=== PATIENT | male | born 1960 | race Caucasian/White ===

== ENCOUNTER 2016-12-06 11:03 | Emergency (ER) | payer OTHER ==
[~2016-12-06] VITALS: Ht 162.6 cm; Wt 70.0 kg
[~2016-12-06 11:03] MED LIST: ALLO300 PO; EPIN1INJ17 IM; FLUT50SP EACH NARE; GABA300C5 PO; GETGO ROLLING W1 MI1; GLUC1TES XX; LANTUS2P SQ; LEVEMIR SQ; LOTE20TA PO; LOVA40TA PO; METF1000 PO; METO100T PO; NOVOINJ3 SQ; SERT-132 PO; SUMA50TA2 PO; TEMA30CA PO; [UNRECOGNIZED DRUG - CODE]; [UNRECOGNIZED DRUG - SUPPLY] SQ
[2016-12-06 11:05] VITALS: BP 163/72; PULSE 60; RESP 20; TEMP 97.9; O2SAT 97
--- NOTE | 2016-12-06 11:32 | PD ---
HPI Chief Complaint: Syncope/Near-Syncope Time Seen by Provider: 11:13 Travel History International Travel<30 days: No Contact w/Intl Traveler<30days: No Traveled to known affect area: No History of Present Illness HPI 56yo M with PMH of neurocardiogenic syncope, DM, HTN presents to the ED with c/ o persistent nasal bone pain s/p fall yesterday afternoon. Pt had an episode of syncope at 3pm yesterday and had epistaxis when he woke up. Pt states he had another episode of epistaxis this morning so was worried that he broke his nose. He has had an extensive work up for his repeated episodes of syncope including loop recorder, cardiology clearance, neurology follow up. Pt currently denies any fever, dizziness, chest pain, sob, n/v, abdominal pain, focal weakness or numbness. PFSH Past Medical History Arthritis: Yes Cancer: No Cardiovascular Problems: Yes (HTN) High Cholesterol: Yes Diabetes: Yes Patient Takes Glucophage: Yes Diminished Hearing: No Gastrointestinal Disorders: No Gout: Yes Genitourinary: No Hypertension: Yes Immune Disorder: No Implanted Vascular Access Dvce: No Neurologic: No Psychiatric: No Reproductive: No Past Surgical History Cardiac Surgery: Yes (loop recorder) Other Surgery: No Social History Alcohol Use: Yes (occ) Tobacco Use: No Substance Use: No Allergies-Medications (Allergen,Severity, Reaction): Coded Allergies: Chlorine (Verified Allergy, Severe, 12/06/16) Opium (Verified Allergy, Intermediate, Anaphylaxis, 12/06/16) states he gets agitation and hyperventilates Opiate Agonists (Narcotics) (Verified Allergy, Unknown, 12/06/16) Shellfish (Verified Allergy, Unknown, 12/06/16) Reported Meds & Prescriptions Reported Meds & Active Scripts Active Acetaminophen 500 Mg Tab 500 Mg PO Q6H PRN Fluticasone Nasal [place] 50 Mcg/Act Naspr 1-2 [place] EACH NARE BID 50 mcg/spray Bd Insulin Syringe Safety 31G X 1564" 0.3 ml (Insulin Syringe/Needle U-100) 1 Mis Mis Syringe TID Sertraline (Sertraline HCl) 50 Mg Tab 50 Mg PO DAILY Temazepam 30 Mg Cap 30 Mg PO HS PRN Novolog Flexpen Inj (Insulin Aspart) 300 Unit/3 Ml Pen 1 Units SQ DIRECTED BD Pen Mini/Insulin Injection Device 1 Mis Mis 1 Units SQ QID Levemir Inj (Insulin Detemir) 1,000 unit/ 10 ML Vial 12 Units SQ DAILY Do not mix with any other Insulin. True Metrix Self Monitori (Glucose Blood) 1 Emily Emily 1 Strip XX 5 TIMES A DAY Metformin (Metformin HCl) 1,000 Mg Tab 1,000 Mg PO BID With a meal Metoprolol Tartrate 100 Mg Tab 50 Mg PO BID Lotensin (Benazepril HCl) 20 Mg Tab 20 Mg PO DAILY Sumatriptan (Sumatriptan Succinate) 50 Mg Tab 50 Mg PO ONCE PRN If a satisfactory response has not been obtained at 2 hours, a second dose may be administered Reported Jonh Moran/Milka (Device) 1 Mis Mis 1 Ea .ROUTE DIRECTED Lovastatin 40 Mg Tab 40 Mg PO HS Lantus Inj (Insulin Glargine) 100 Unit/Ml Inj 25 Units SQ HS Gabapentin 300 Mg Cap 300 Mg PO TID Epinephrine Inj (Epinephrine) 0.3 Mg/0.3 Ml Pfpen 0.3 Mg IM ONCE PRN Zyloprim (Allopurinol) 300 Mg Tab 300 Mg PO DAILY Review of Systems Except as stated in HPI: all other systems reviewed are Neg Physical Exam Narrative GENERAL: 56yo M not in distress. SKIN: Warm and dry. HEAD: Normocephalic. Atraumatic. EYES: Pupils equal and round at 4mm bilaterally. EOMI. No scleral icterus. No injection or drainage. ENT: No active bleeding. No septal hematoma. +Small abrasion bridge of nose with ttp bilateral nasal bone. No drainage from bilateral ears. NECK: No midline ttp cervical spine. CARDIOVASCULAR: Regular rate and rhythm. No murmur appreciated. RESPIRATORY: No accessory muscle use. Clear to auscultation. Breath sounds equal bilaterally. GASTROINTESTINAL: Abdomen soft, non-tender, nondistended. No rebound tenderness bilaterally. MUSCULOSKELETAL: No obvious deformities. No clubbing. No cyanosis. No edema. NEUROLOGICAL: Awake and alert. No obvious cranial nerve deficits. Motor grossly within normal limits. Normal speech. PSYCHIATRIC: Appropriate mood and affect; insight and judgment normal. Data Data Last Documented VS Vital Signs Date Time Temp Pulse Resp B/P Pulse Ox O2 Delivery O2 Flow Rate FiO2 12/06/16 13:25 53 20 139/65 97 Room Air 12/06/16 11:05 97.9 Orders Electrocardiogram (12/06/16 ) Complete Blood Count With Diff (12/06/16 11:24) Basic Metabolic Panel (Bmp) (12/06/16 11:24) Ct Brain W/O Iv Contrast(Rout) (12/06/16 ) Ct Facial Bones W/O Iv Cont (12/06/16 ) Labs Laboratory Tests Test 12/06/16 11:30 White Blood Count 6.6 TH/MM3 Red Blood Count 3.85 MIL/MM3 Hemoglobin 12.1 GM/DL Hematocrit 34.8 % Mean Corpuscular Volume 90.5 FL Mean Corpuscular Hemoglobin 31.5 PG Mean Corpuscular Hemoglobin 34.8 % Concent Red Cell Distribution Width 13.4 % Platelet Count 177 TH/MM3 Mean Platelet Volume 9.7 FL Neutrophils (%) (Auto) 58.2 % Lymphocytes (%) (Auto) 30.2 % Monocytes (%) (Auto) 9.5 % Eosinophils (%) (Auto) 1.7 % Basophils (%) (Auto) 0.4 % Neutrophils # (Auto) 3.9 TH/MM3 Lymphocytes # (Auto) 2.0 TH/MM3 Monocytes # (Auto) 0.6 TH/MM3 Eosinophils # (Auto) 0.1 TH/MM3 Basophils # (Auto) 0.0 TH/MM3 CBC Comment DIFF FINAL Differential Comment Sodium Level 141 MEQ/L Potassium Level 4.3 MEQ/L Chloride Level 107 MEQ/L Carbon Dioxide Level 28.6 MEQ/L Anion Gap 5 MEQ/L Blood Urea Nitrogen 20 MG/DL Creatinine 1.21 MG/DL Estimat Glomerular Filtration 62 ML/MIN Rate Random Glucose 137 MG/DL Calcium Level 8.2 MG/DL MDM Medical Decision Making Medical Screen Exam Complete: Yes Emergency Medical Condition: Yes Interpretation(s) EKG: NSR 62bpm. LAD. TWI III. Mild STD aVF. Laboratory Tests Test 12/06/16 11:30 White Blood Count 6.6 TH/MM3 (4.0-11.0) Red Blood Count 3.85 MIL/MM3 (4.50-5.90) Hemoglobin 12.1 GM/DL (13.0-17.0) Hematocrit 34.8 % (39.0-51.0) Mean Corpuscular Volume 90.5 FL (80.0-100.0) Mean Corpuscular Hemoglobin 31.5 PG (27.0-34.0) Mean Corpuscular Hemoglobin 34.8 % Concent (32.0-36.0) Red Cell Distribution Width 13.4 % (11.6-17.2) Platelet Count 177 TH/MM3 (150-450) Mean Platelet Volume 9.7 FL (7.0-11.0) Neutrophils (%) (Auto) 58.2 % (16.0-70.0) Lymphocytes (%) (Auto) 30.2 % (9.0-44.0) Monocytes (%) (Auto) 9.5 % (0.0-8.0) Eosinophils (%) (Auto) 1.7 % (0.0-4.0) Basophils (%) (Auto) 0.4 % (0.0-2.0) Neutrophils # (Auto) 3.9 TH/MM3 (1.8-7.7) Lymphocytes # (Auto) 2.0 TH/MM3 (1.0-4.8) Monocytes # (Auto) 0.6 TH/MM3 (0-0.9) Eosinophils # (Auto) 0.1 TH/MM3 (0-0.4) Basophils # (Auto) 0.0 TH/MM3 (0-0.2) CBC Comment DIFF FINAL Differential Comment Sodium Level 141 MEQ/L (136-145) Potassium Level 4.3 MEQ/L (3.5-5.1) Chloride Level 107 MEQ/L (98-107) Carbon Dioxide Level 28.6 MEQ/L (21.0-32.0) Anion Gap 5 MEQ/L (5-15) Blood Urea Nitrogen 20 MG/DL (7-18) Creatinine 1.21 MG/DL (0.60-1.30) Estimat Glomerular Filtration 62 ML/MIN (>89) Rate Random Glucose 137 MG/DL (74-106) Calcium Level 8.2 MG/DL (8.5-10.1) Last Impressions Maxillofacial CT 12/06/16 0000 Signed Impressions: Service Date/Time: Tuesday, December 06, 2016 13:03 - CONCLUSION: No facial fracture. Ezequiel Eaton MD Head CT 12/06/16 0000 Signed Impressions: Service Date/Time: Tuesday, December 06, 2016 13:03 - CONCLUSION: No acute intracranial disease. Ezequiel Eaton MD Differential Diagnosis Neurocardiogenic syncope vs. concussion vs. ICH vs. nasal bone fracture vs. arrhythmia vs. electrolyte abnormality Narrative Course 56yo M with history of neurocardiogenic syncope here with nasal pain after fall yesterday. Pt had epistaxis that had resolved on its own. Labs reviewed, no leukocytosis. H/H low but at baseline. BUN mildly elevated. Pt tolerating PO. CT brain negative. CT maxillofacial negative for fracture. Pt has no complaints. Return precautions given. Up to date on tetanus. Diagnosis Primary Impression: Fall Qualified Code: W19.XXXA - Fall, initial encounter Patient Instructions: General Instructions Departure Forms: Tests/Procedures Additional Instructions: Please follow up with PMD in 3-7 days. Return to the ED if symptoms worsen. Med/Other Pt SpecificInfo: Prescription(s) given Scripts Acetaminophen 500 Mg Nin419 Mg PO Q6H PRN (PAIN SCALE 1 TO 4) #20 TAB Ref 0 Prov:Radha Mejia DO 12/06/16 Disposition: 01 DISCHARGE HOME Condition: Stable Radha Mejia DO Dec 06, 2016 11:32
[2016-12-06 11:45] LABS: AUTOMATED NEUTROPHIL # 3.9 TH/MM3 (1.8-7.7); BASOPHIL % 0.4 % (0.0-2.0); EOSINOPHIL # 0.1 TH/MM3 (0-0.4); EOSINOPHIL % 1.7 % (0.0-4.0); HEMATOCRIT 34.8 % (39.0-51.0); HEMO FLAGS DIFF FINAL; LYMPH % 30.2 % (9.0-44.0); MEAN CELL VOLUME 90.5 FL (80.0-100.0); MEAN CORPUSCULAR HEMOGLOBIN 31.5 PG (27.0-34.0); MEAN CORPUSCULAR HGB CONC 34.8 % (32.0-36.0); MONO % 9.5 % (0.0-8.0); NEUT % 58.2 % (16.0-70.0); PLATELET COUNT 177 TH/MM3 (150-450); RED BLOOD COUNT 3.85 MIL/MM3 (4.50-5.90); RED CELL DISTRIBUTION WIDTH 13.4 % (11.6-17.2); WHITE BLOOD COUNT 6.6 TH/MM3 (4.0-11.0)
[2016-12-06 12:02] VITALS: BP 139/65; PULSE 63; RESP 18; O2SAT 96
[2016-12-06 12:02] LABS: BICARBONATE 28.6 MEQ/L (21.0-32.0); POTASSIUM 4.3 MEQ/L (3.5-5.1)
--- NOTE | 2016-12-06 13:21 | RADRPT ---
EXAM DATE/TIME: 12/06/2016 13:03 [facility] COMPARISON: CT BRAIN W/O CONTRAST, May 03, 2016, 10:13. INDICATIONS : Fall and hit head and face yesterday; possible syncopal episode. RADIATION DOSE: 42.27 CTDIvol (mGy) MEDICAL HISTORY : Hypertension. Diabetes mellitus type 2. SURGICAL HISTORY : None. ENCOUNTER: Initial ACUITY: 1 day PAIN SCALE: 5/10 LOCATION: cranial TECHNIQUE: Multiple contiguous axial images were obtained of the head. Using automated exposure control and adj ustment of the mA and/or kV according to patient size, radiation dose was kept as low as reasonably a chievable to obtain optimal diagnostic quality images. FINDINGS: CEREBRUM: Cortical atrophy. The ventricles are normal for age. No evidence of midline shift, mass lesion, hemo rrhage or acute infarction. No extra-axial fluid collections are seen. POSTERIOR FOSSA: The cerebellum and brainstem are intact. The 4th ventricle is midline. The cerebellopontine angle i s unremarkable. EXTRACRANIAL: The visualized portion of the orbits is intact. SKULL: The calvaria is intact. No evidence of skull fracture. CONCLUSION: No acute intracranial disease. Ezequiel Eaton MD on December 06, 2016 at 13:19 Board Certified Radiologist. This report was verified electronically.
--- NOTE | 2016-12-06 13:22 | RADRPT ---
EXAM DATE/TIME: 12/06/2016 13:03 [facility] COMPARISON: No previous studies available for comparison. INDICATIONS : Fall and hit head and face yesterday; possible syncopal episode. RADIATION DOSE: 54.47 CTDIvol (mGy) MEDICAL HISTORY : Hypertension. Diabetes mellitus type 2. SURGICAL HISTORY : None. ENCOUNTER: Initial ACUITY: 1 day PAIN SCORE: 6/10 LOCATION: facial TECHNIQUE: Volumetric scanning of the facial bones was performed. Using automated exposure control and adjustme nt of the mA and/or kV according to patient size, radiation dose was kept as low as reasonably achiev able to obtain optimal diagnostic quality images. FINDINGS: ORBITS: The orbital and infraorbital osseous structures are intact. The retroconal structures have a normal configuration. No radiopaque foreign bodies are seen. NASAL BONE: The nasal bone and maxillary spine are intact ZYGOMATIC ARCHES: Symmetric without evidence of fracture. SINUSES: The maxillary, ethmoid and frontal sinuses are intact. No air-fluid levels seen. NASAL CAVITY: The nasal septum is intact and midline. The lacrimal ducts are intact. SOFT TISSUES: No radiopaque foreign bodies seen. No soft-tissue swelling is seen. INTRACRANIAL: No intracranial air seen. CRIBIFORM PLATE: Grossly intact. CONCLUSION: No facial fracture. Ezequiel Eaton MD on December 06, 2016 at 13:20 Board Certified Radiologist. This report was verified electronically.
[2016-12-06 13:25] VITALS: BP 139/65; PULSE 53; RESP 20; O2SAT 97
[2016-12-06] MEDS ORDERED: ACET500T3 PO (13:44)
[2016-12-06 15:40] VITALS: BP 186/88; O2SAT 96
--- NOTE | 2016-12-07 12:54 | EKG ---
Date Performed: 12/06/2016 Time Performed: 11:27:45 PTAGE: 56 years EKG: Sinus rhythm NORMAL ECG PREVIOUS TRACING : 11/07/2015 08.33 DOCTOR: Chris Valentin Interpretating Date/Time 12/07/2016 12:49:55
[2016-12-16] MEDS ORDERED: SERT-132 PO (09:48)
[2016-12-19] MEDS ORDERED: LOVA40TA PO (08:16)
[2016-12-23] MEDS ORDERED: LANTUS2P SQ (16:57)
[2017-01-20] MEDS ORDERED: GLUC1TES XX (08:41)
[2017-01-21] MEDS ORDERED: TEMA30CA PO (16:46)
[2017-01-25] MEDS ORDERED: AMLO5TAB2 PO (05:24)
[2017-01-25] MEDS ORDERED: BLOOKIT (05:25)
[2017-01-25] MEDS ORDERED: METO25TA3 PO (05:27)
[2017-02-10] MEDS ORDERED: ALLO300 PO (08:05)
[2017-02-10] MEDS ORDERED: LOTE20TA PO (08:06)
[2017-02-23] MEDS ORDERED: AMLO5TAB2 PO (07:23)
[2017-02-25] MEDS ORDERED: TEMA30CA PO (11:55)
[2017-02-25] MEDS ORDERED: BUSP5TAB PO (23:57)
[2017-03-20] MEDS ORDERED: AMLO5TAB2 PO (18:53)
[2017-03-20] MEDS ORDERED: FLUT50SP EACH NARE (18:54)
[2017-03-20] MEDS ORDERED: BUSP5TAB PO (18:54)
[2017-04-01] MEDS ORDERED: GABA300C5 PO (14:53)
[2017-04-15] MEDS ORDERED: BUSP10TA PO (13:00)
[2017-04-22] MEDS ORDERED: TEMA30CA PO (07:32)
== END 2016-12-06 15:47 | disposition home or self-care (01) ==
LOC: NEPA 11:03
DX: J34.89 Other specified disorders of nose and nasal sinuses (principal); R55 Syncope and collapse; I10 Essential (primary) hypertension; E11.9 Type 2 diabetes mellitus without complications; E78.00 Pure hypercholesterolemia, unspecified; W19.XXXA Unspecified fall, initial encounter; Z79.84 Long term (current) use of oral hypoglycemic drugs
CPT/HCPCS: 70450; 70486; 80048; 85025; 93005

== ENCOUNTER 2017-03-04 16:05 | Emergency (ER) | payer OTHER ==
[~2017-03-04] VITALS: Ht 162.6 cm; Wt 70.0 kg
[~2017-03-04 16:05] MED LIST changes: +ACET500T3 PO; +AMLO5TAB2 PO; +BLOOKIT; +BUSP5TAB PO; -METO100T PO; +METO25TA3 PO; -SERT-132 PO
[2017-03-04 16:06] VITALS: BP 92/51; PULSE 62; RESP 18; TEMP 98.8; O2SAT 97
--- NOTE | 2017-03-04 16:10 | PD ---
Physical Exam Date Seen by Provider: March 04, 2017 Time Seen by Provider: 16:08 Narrative 56 year old male presents to the emergency department for evaluation of syncope. He reports history of diabetic neurological syncope. He reports left facial pain and left arm pain. Vital signs reviewed. Patient awaiting bed placement. Data Data Last Documented VS Vital Signs Date Time Temp Pulse Resp B/P Pulse Ox O2 Delivery O2 Flow Rate FiO2 03/04/17 16:06 98.8 62 18 92/51 97 MDM Supervised Visit with LARON: Amy Echeverria March 04, 2017 16:10
[2017-03-04] MEDS ORDERED: TRAM50TA PO (16:24)
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
[2017-03-20] MEDS ORDERED: AMLO5TAB2 PO (18:53)
[2017-03-20] MEDS ORDERED: BUSP5TAB PO (18:54)
[2017-03-20] MEDS ORDERED: FLUT50SP EACH NARE (18:54)
[2017-04-01] MEDS ORDERED: GABA300C5 PO (14:53)
[2017-04-15] MEDS ORDERED: BUSP10TA PO (13:00)
[2017-04-22] MEDS ORDERED: TEMA30CA PO (07:32)
== END 2017-03-04 17:01 | disposition home or self-care (01) ==
LOC: NEPD 16:05
DX: R55 Syncope and collapse (principal); S50.12XA Contusion of left forearm, initial encounter; V19.9XXA Pedal cyclist (driver) (passenger) injured in unspecified traffic accident, initial encounter; Y93.55 Activity, bike riding
CPT/HCPCS: 99283

== ENCOUNTER 2017-05-26 15:18 | Emergency (ER) | payer OTHER ==
[~2017-05-26 15:18] MED LIST changes: +BUSP10TA PO; -BUSP5TAB PO; +TRAM50TA PO
[2017-05-26 15:29] VITALS: BP 136/73; PULSE 81; RESP 16; TEMP 98.6; O2SAT 98
[2017-05-26 16:58] VITALS: RESP 18; O2SAT 99
[2017-05-26] MEDS ORDERED: LIDOCAINE 2%/EPINEPHrine 1:100,000 30ML MDV INFIL ONE (17:00)
[2017-05-26] MEDS ORDERED: SODIUM CHLORIDE 0.9% FLUSH 10 ML FLUSH IVF PRN (17:00)
[2017-05-26] MEDS ORDERED: LIDOCAINE 2%/EPINEPHrine 1:100,000 50ML MDV ONE (17:01)
[2017-05-26] MEDS ORDERED: KETOROLAC TROMETHAMINE 30 MG/ML (IVP) VIAL IV PUSH ONE (17:15)
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
[2017-05-26 17:28] LABS: AUTOMATED NEUTROPHIL # 10.4 TH/MM3 (1.8-7.7); BASOPHIL # 0.1 TH/MM3 (0-0.2); BASOPHIL % 0.9 % (0.0-2.0); EOSINOPHIL % 0.2 % (0.0-4.0); HEMO FLAGS DIFF FINAL; LYMPH % 19.5 % (9.0-44.0); LYMPHOCYTE # 2.8 TH/MM3 (1.0-4.8); MEAN CELL VOLUME 93.2 FL (80.0-100.0); MEAN CORPUSCULAR HEMOGLOBIN 32.5 PG (27.0-34.0); MEAN CORPUSCULAR HGB CONC 34.8 % (32.0-36.0); MONO % 6.9 % (0.0-8.0); NEUT % 72.5 % (16.0-70.0); PLATELET COUNT 180 TH/MM3 (150-450); RED BLOOD COUNT 4.18 MIL/MM3 (4.50-5.90); RED CELL DISTRIBUTION WIDTH 13.4 % (11.6-17.2); WHITE BLOOD COUNT 14.3 TH/MM3 (4.0-11.0)
[2017-05-26 17:34] LABS: APTT (PATIENT) 24.6 SEC (24.3-30.1); INTERNATIONAL NORMALIZED RATIO 0.9 RATIO; PROTHROMBIN TIME - PATIENT 9.8 SEC (9.8-11.6)
--- NOTE | 2017-05-26 17:39 | RADRPT ---
EXAM DATE/TIME: 05/26/2017 17:14 [facility] COMPARISON: No previous studies available for comparison. INDICATIONS : Right hip pain post fall one week ago. MEDICAL HISTORY : None. SURGICAL HISTORY : None. ENCOUNTER: Initial ACUITY: 1 week PAIN SCORE: 5/10 LOCATION: Right hip. FINDINGS: Mild osteoarthritis of the hips. No acute fracture or dislocation. No bony destructive changes. CONCLUSION: 1. Mild osteoarthritis of the hips. No acute bony abnormalities. Maxim Spaulding MD on May 26, 2017 at 17:35 Board Certified Radiologist. This report was verified electronically.
[2017-05-26 17:41] LABS: ANION GAP 7 MEQ/L (5-15); AST (GOT) 28 U/L (15-37); BLOOD UREA NITROGEN 25 MG/DL (7-18); CHLORIDE 100 MEQ/L (98-107); GLOMERULAR FILTRATION RATE 64 ML/MIN (>89); MAGNESIUM 1.9 MG/DL (1.5-2.5); POTASSIUM 4.5 MEQ/L (3.5-5.1); SODIUM (NA) 136 MEQ/L (136-145)
[2017-05-26 17:47] LABS: ALKALINE PHOSPHATASE 96 U/L (45-117); ALT (GPT) 34 U/L (12-78); CREATINE KINASE 104 U/L (39-308); TOTAL BILIRUBIN ADULT 0.5 MG/DL (0.2-1.0)
[2017-05-26 18:01] LABS: CKMB 3.9 NG/ML (0.5-3.6)
[2017-05-26] MEDS ORDERED: MELO-1 PO (18:14)
[2017-05-26] MEDS ORDERED: CYCL1TAB29 PO (18:14)
--- NOTE | 2017-05-27 09:29 | EKG ---
Date Performed: 05/26/2017 Time Performed: 18:29:50 PTAGE: 56 years EKG: Sinus rhythm NORMAL ECG PREVIOUS TRACING : 12/06/2016 11.27 DOCTOR: James Streeter Interpretating Date/Time 05/27/2017 09:28:20
[2017-06-10] MEDS ORDERED: EPIP0.3I IM (16:58)
[2017-06-10] MEDS ORDERED: TEMA30CA PO (16:58)
== END 2017-05-26 19:07 | disposition home or self-care (01) ==
LOC: NEPE 15:18
DX: S51.811A Laceration without foreign body of right forearm, initial encounter (principal); R55 Syncope and collapse; M25.551 Pain in right hip; I10 Essential (primary) hypertension; E11.9 Type 2 diabetes mellitus without complications; E78.00 Pure hypercholesterolemia, unspecified; V19.3XXA Pedal cyclist (driver) (passenger) injured in unspecified nontraffic accident, initial encounter; Y93.55 Activity, bike riding; Z79.4 Long term (current) use of insulin; Z87.39 Personal history of other diseases of the musculoskeletal system and connective tissue; Z86.79 Personal history of other diseases of the circulatory system; Z86.69 Personal history of other diseases of the nervous system and sense organs
CPT/HCPCS: 12002; 73502; 80053; 82550; 82552; 83735; 84484; 85025; 85610; 85730; 93005; 96374; 99285; J1885

== ENCOUNTER 2017-06-13 03:00 | Emergency (ER) | payer OTHER ==
[~2017-06-13] VITALS: Ht 162.6 cm; Wt 78.6 kg
[~2017-06-13 03:00] MED LIST changes: +CYCL1TAB29 PO; -EPIN1INJ17 IM; +EPIP0.3I IM; -LANTUS2P SQ; -LEVEMIR SQ; +MELO-1 PO; -NOVOINJ3 SQ
[2017-06-13 03:03] VITALS: BP 147/84; PULSE 109; RESP 20; TEMP 98.4; O2SAT 100
[2017-06-13] MEDS ORDERED: SODIUM CHLOR 0.9% 1000 ML INJ 1,000 ML IV ONE (03:11)
[2017-06-13] MEDS ORDERED: diphenhydrAMINE HCL 50 MG/ML VIAL IVP ONE (03:15)
[2017-06-13] MEDS ORDERED: PROCHLORPERAZINE INJ 10 MG/2 ML VIAL IVP ONE (03:15)
[2017-06-13] MEDS ORDERED: SODIUM CHLORIDE 0.9% FLUSH 10 ML FLUSH IVF PRN (03:15)
--- NOTE | 2017-06-13 03:24 | PD ---
HPI . Migraine Chief Complaint: Syncope/Near-Syncope Time Seen by Provider: 03:11 Travel History International Travel<30 days: No Contact w/Intl Traveler<30days: No Traveled to known affect area: No History of Present Illness HPI This patient presents to us via [facility] with the chief complaint of migraine headache which started this morning. He has subsequently developed vertigo with nausea and vomiting. He states that he has a history of migraine headaches and normally takes a triptan at the onset of a headache. However, he was at work today and did not have access to his medication. Therefore, he has not had anything for his migraine prior to presentation. His vertigo is exacerbated by sitting up and improved by lying down. He reports that his symptoms are severe. PFSH Past Medical History Arthritis: Yes Cancer: No Cardiovascular Problems: Yes (HTN) High Cholesterol: Yes Diabetes: Yes Patient Takes Glucophage: Yes Diminished Hearing: No Gastrointestinal Disorders: No Gout: Yes Genitourinary: No Hypertension: Yes Immune Disorder: No Implanted Vascular Access Dvce: No Neurologic: No Psychiatric: No Reproductive: No Past Surgical History Surgical History: No Previous Surgery Cardiac Surgery: Yes (loop recorder) Other Surgery: No Social History Alcohol Use: Yes (occ) Tobacco Use: No Substance Use: No Allergies-Medications (Allergen,Severity, Reaction): Coded Allergies: sodium hypochlorite solution (Unverified Allergy, Severe, 06/10/17) opium (anthroposophic) (Unverified Allergy, Intermediate, Anaphylaxis, ) states he gets agitation and hyperventilates Opioids - Morphine Analogues (Unverified Allergy, Unknown, 06/10/17) Opioids-Meperidine and Related (Unverified Allergy, Unknown, 06/10/17) Opioids-Methadone and Related (Unverified Allergy, Unknown, 06/10/17) shellfish derived (Unverified Allergy, Unknown, 06/10/17) Reported Meds & Prescriptions Reported Meds & Active Scripts Active Epipen 2-Eliseo Inj (Epinephrine) 0.3 Mg/0.3 Ml Pfpen 0.3 Mg IM ONCE PRN Temazepam 30 Mg Cap 30 Mg PO HS PRN Flexeril (Cyclobenzaprine HCl) 10 Mg Tab 10 Mg PO TID PRN 10 Days Meloxicam 15 Mg Tab 15 Mg PO DAILY 10 Days Lotensin (Benazepril HCl) 20 Mg Tab 20 Mg PO DAILY True Metrix Self Monitori (Glucose Blood) 1 Emily Emily 1 Strip XX 5 TIMES A DAY Zyloprim (Allopurinol) 300 Mg Tab 300 Mg PO DAILY Metoprolol Tartrate 25 Mg Tab 25 Mg PO BID Buspirone (Buspirone HCl) 10 Mg Tab 10 Mg PO TID Gabapentin 300 Mg Cap 300 Mg PO TID Fluticasone Nasal [place] 50 Mcg/Act Naspr 1-2 [place] EACH NARE BID 50 mcg/spray Amlodipine (Amlodipine Besylate) 5 Mg Tab 5 Mg PO DAILY Lovastatin 40 Mg Tab 40 Mg PO HS Sumatriptan (Sumatriptan Succinate) 50 Mg Tab 50 Mg PO ONCE PRN If a satisfactory response has not been obtained at 2 hours, a second dose may be administered Reported Tramadol (Tramadol HCl) 50 Mg Tab 50 Mg PO TID PRN Walker Rolling/GetGo (Device) 1 Mis Mis 1 Ea .ROUTE DIRECTED Review of Systems Except as stated in HPI: all other systems reviewed are Neg General / Constitutional: No: Fever, Chills Eyes: Positive: Photophobia HENT: Positive: Headaches, Vertigo Gastrointestinal: Positive: Nausea, Vomiting Physical Exam Narrative GENERAL: Patient is awake and alert. He appears uncomfortable. SKIN: Warm and dry. HEAD: Atraumatic. Normocephalic. EYES: Pupils equal and round. Extraocular movements are intact. ENT: No nasal bleeding or discharge. Mucous membranes pink and moist. NECK: Trachea midline. Neck is supple. CARDIOVASCULAR: Regular rate and rhythm. RESPIRATORY: No accessory muscle use. MUSCULOSKELETAL: No obvious deformities. No edema. NEUROLOGICAL: Awake and alert. No obvious cranial nerve deficits. Motor grossly within normal limits. Normal speech. PSYCHIATRIC: Appropriate mood and affect; insight and judgment normal. Data Data Last Documented VS Vital Signs Date Time Temp Pulse Resp B/P Pulse Ox O2 Delivery O2 Flow Rate FiO2 06/13/17 03:03 98.4 109 20 147/[address] Brain W/O Iv Contrast(Rout) (06/13/17 03:11) Iv Access Insert/Monitor (06/13/17 03:11) Sodium Chloride 0.9% Flush (Ns Flush) (06/13/17 03:15) Prochlorperazine Inj (Compazine Inj) (06/13/17 03:15) Diphenhydramine Inj (Benadryl Inj) (06/13/17 03:15) Sodium Chlor 0.9% 1000 Ml Inj (Ns 1000 M (06/13/17 03:11) MDM Medical Decision Making Medical Screen Exam Complete: Yes Emergency Medical Condition: Yes Differential Diagnosis Differential diagnosis of headache includes but is not limited to migraine, muscle contraction headache, brain tumor, brain bleed Narrative Course This patient presents complaining with a migraine headache. It is associated with vertigo and vomiting. He is being treated with IV fluids and IV Compazine/ Benadryl. CT of the head is pending. The patient is now resting comfortably. No further emesis since medication. Last Impressions Head CT 06/13/17310 Signed Impressions: Service Date/Time: Thursday, June 13, 2017 03:39 - CONCLUSION: Normal examination for a patient of this age. No significant change has occurred. Maxim Spaulding MD This patient is stable for discharge to home. Diagnosis Primary Impression: Migraine Qualified Code: G43.909 - Migraine without status migrainosus, not intractable , unspecified migraine type Patient Instructions: General Instructions, Migraine Headache (DC), Vertigo (DC ) Disposition: DISCHARGE HOME Condition: Stable Iris Fernández MD Jun 13, 2017 03:24
--- NOTE | 2017-06-13 03:46 | RADRPT ---
EXAM DATE/TIME: 06/13/2017 03:39 [facility] COMPARISON: CT BRAIN W/O CONTRAST, December 06, 2016, 13:03. INDICATIONS : Syncopal episode, cephalgia with nausea and vomiting. RADIATION DOSE: 40.49 CTDIvol (mGy) MEDICAL HISTORY : Hypertension. Diabetes mellitus type 2. SURGICAL HISTORY : None. ENCOUNTER: Initial ACUITY: 1 day PAIN SCALE: 5/10 LOCATION: cranial TECHNIQUE: Multiple contiguous axial images were obtained of the head. Using automated exposure control and adj ustment of the mA and/or kV according to patient size, radiation dose was kept as low as reasonably a chievable to obtain optimal diagnostic quality images. DICOM format image data is available electro nically for review and comparison. FINDINGS: CEREBRUM: The ventricles are normal for age. No evidence of midline shift, mass lesion, hemorrhage or acute in farction. No extra-axial fluid collections are seen. POSTERIOR FOSSA: The cerebellum and brainstem are intact. The 4th ventricle is midline. The cerebellopontine angle i s unremarkable. EXTRACRANIAL: The visualized portion of the orbits is intact. SKULL: The calvaria is intact. No evidence of skull fracture. CONCLUSION: Normal examination for a patient of this age. No significant change has occurred. Maixm Spaulding MD on June 13, 2017 at 3:42 Board Certified Radiologist. This report was verified electronically.
[2017-06-30] MEDS ORDERED: ZOFR4TAB3 SL ×2 (12:20→16:59)
[2017-07-20] MEDS ORDERED: LOVA40TA PO (07:56)
[2017-07-21] MEDS ORDERED: LOVA40TA PO (06:45)
[2017-07-22] MEDS ORDERED: AMLO5TAB2 PO (18:08)
== END 2017-06-13 05:04 | disposition home or self-care (01) ==
LOC: NEPC 03:00
DX: G43.909 Migraine, unspecified, not intractable, without status migrainosus (principal); I10 Essential (primary) hypertension
CPT/HCPCS: 70450; 96361; 96374; 96375; 99285; J0780; J1200; J7030

== ENCOUNTER 2017-06-30 14:31 | Emergency (ER) | payer OTHER ==
[~2017-06-30] VITALS: Ht 165.1 cm; Wt 85.0 kg
[~2017-06-30 14:31] MED LIST changes: -ACET500T3 PO; -BLOOKIT; -METF1000 PO; +ZOFR4TAB3 SL; -[UNRECOGNIZED DRUG - CODE]; -[UNRECOGNIZED DRUG - SUPPLY] SQ
[2017-06-30 14:33] VITALS: BP 180/96; PULSE 112; RESP 17; TEMP 98.6; O2SAT 96
[2017-06-30 15:00] VITALS: BP 176/88; PULSE 103; RESP 19; TEMP 99; O2SAT 99
[2017-06-30] MEDS ORDERED: SODIUM CHLOR 0.9% 1000 ML INJ 1,000 ML IV SCH ×2 (15:07→16:32)
[2017-06-30 15:12] VITALS: BP 176/88; PULSE 103; RESP 19; TEMP 99; O2SAT 99
--- NOTE | 2017-06-30 15:12 | PD ---
HPI Chief Complaint: GI Complaint Time Seen by Provider: 15:00 Travel History International Travel<30 days: No Contact w/Intl Traveler<30days: No Traveled to known affect area: No History of Present Illness HPI This is a 56-year-old male who presents for evaluation of nausea, vomiting, vertigo sensation. Symptoms started 3 days ago. He reports multiple episodes of nausea and vomiting on a daily basis. The vomiting and nausea seems to be worse when he moves and develops a vertigo-like sensation. He reports that he has had difficulty keeping any food or fluid down because of this. He reports that he had similar symptoms on June 13 and he presented here for evaluation. He had a normal CT the brain and he was diagnosed with migraine. He was given a migraine cocktail with significant improvement of his symptoms. He reports that his current symptoms are similar however he is having no headache. He denies abdominal pain, diarrhea or constipation. He reports no objective fevers but he has had some sweats and chills. He does report that his last few episodes of emesis today were blood-tinged. He has a history of type 1 diabetes. He has been checking his blood sugar and it has been normal. He has no other complaints at this time. PFSH Past Medical History Arthritis: Yes Cancer: No Cardiovascular Problems: Yes (HTN) High Cholesterol: Yes Diabetes: Yes Patient Takes Glucophage: Yes Diminished Hearing: No Gastrointestinal Disorders: No Gout: Yes Genitourinary: No Hypertension: Yes Immune Disorder: No Implanted Vascular Access Dvce: No Neurologic: No Psychiatric: No Reproductive: No Past Surgical History Cardiac Surgery: Yes (loop recorder) Other Surgery: No Social History Alcohol Use: Yes (occ) Tobacco Use: No Substance Use: No Allergies-Medications (Allergen,Severity, Reaction): Coded Allergies: sodium hypochlorite solution (Unverified Allergy, Severe, 06/30/17) opium (anthroposophic) (Unverified Allergy, Intermediate, Anaphylaxis, 06/30) states he gets agitation and hyperventilates Opioids - Morphine Analogues (Unverified Allergy, Unknown, 06/30/17) Opioids-Meperidine and Related (Unverified Allergy, Unknown, 06/30/17) Opioids-Methadone and Related (Unverified Allergy, Unknown, 06/30/17) shellfish derived (Unverified Allergy, Unknown, 06/30/17) Reported Meds & Prescriptions Reported Meds & Active Scripts Active Meclizine (Meclizine HCl) 12.5 Mg Tab 12.5 Mg PO TID PRN 5 Days Zofran Odt (Ondansetron Odt) 4 Mg Tab 4 Mg SL Q6HR PRN Epipen 2-Eliseo Inj (Epinephrine) 0.3 Mg/0.3 Ml Pfpen 0.3 Mg IM ONCE PRN Temazepam 30 Mg Cap 30 Mg PO HS PRN Flexeril (Cyclobenzaprine HCl) 10 Mg Tab 10 Mg PO TID PRN 10 Days Lotensin (Benazepril HCl) 20 Mg Tab 20 Mg PO DAILY True Metrix Self Monitori (Glucose Blood) 1 Emily Emily 1 Strip XX 5 TIMES A DAY Zyloprim (Allopurinol) 300 Mg Tab 300 Mg PO DAILY Metoprolol Tartrate 25 Mg Tab 25 Mg PO BID Buspirone (Buspirone HCl) 10 Mg Tab 10 Mg PO TID Gabapentin 300 Mg Cap 300 Mg PO TID Fluticasone Nasal [place] 50 Mcg/Act Naspr 1-2 [place] EACH NARE BID 50 mcg/spray Amlodipine (Amlodipine Besylate) 5 Mg Tab 5 Mg PO DAILY Lovastatin 40 Mg Tab 40 Mg PO HS Sumatriptan (Sumatriptan Succinate) 50 Mg Tab 50 Mg PO ONCE PRN If a satisfactory response has not been obtained at 2 hours, a second dose may be administered Reported Tramadol (Tramadol HCl) 50 Mg Tab 50 Mg PO TID PRN Walker Rolling/GetGo (Device) 1 Mis Mis 1 Ea .ROUTE DIRECTED Review of Systems Except as stated in HPI: all other systems reviewed are Neg Physical Exam Narrative GENERAL: Well-nourished male in no acute distress. He is tachycardic. Blood pressure is elevated, he has been unable to check his blood pressure medications secondary to vomiting. SKIN: Warm and dry. HEAD: Atraumatic. Normocephalic. EYES: Pupils equal and round reactive to light extraocular muscles are intact no nystagmus.. No scleral icterus. No injection or drainage. ENT: No nasal bleeding or discharge. Mucous membranes pink and moist. NECK: Trachea midline. No JVD. CARDIOVASCULAR: Regular rate and rhythm. No murmur appreciated. RESPIRATORY: No accessory muscle use. Clear to auscultation. Breath sounds equal bilaterally. GASTROINTESTINAL: Abdomen soft, non-tender, nondistended. Hepatic and splenic margins not palpable. MUSCULOSKELETAL: No obvious deformities. No clubbing. No cyanosis. No edema. NEUROLOGICAL: Awake and alert. No obvious cranial nerve deficits. Motor grossly within normal limits. Normal speech. PSYCHIATRIC: Appropriate mood and affect; insight and judgment normal. Data Data Last Documented VS Vital Signs Date Time Temp Pulse Resp B/P (MAP) Pulse Ox O2 Delivery O2 Flow Rate FiO2 06/30/17 15:12 99.0 103 19 176/88 (117) 99 Room Air Orders Orders Complete Blood Count With Diff (06/30/17 15:07) Comprehensive Metabolic Panel (06/30/17 15:07) Lipase (06/30/17 15:07) Iv Access Insert/Monitor (06/30/17 15:07) Ecg Monitoring (06/30/17 15:07) Oximetry (06/30/17 15:07) Ondansetron Inj (Zofran Inj) (06/30/17 15:15) Sodium Chlor 0.9% 1000 Ml Inj (Ns 1000 M (06/30/17 15:07) Sodium Chloride 0.9% Flush (Ns Flush) (06/30/17 15:15) Electrocardiogram (06/30/17 15:07) Creatine Kinase (Cpk) (06/30/17 15:07) Act Partial Throm Time (Ptt) (06/30/17 15:07) Prothrombin Time / Inr (Pt) (06/30/17 15:07) Meclizine (Antivert) (06/30/17 15:15) Sodium Chlor 0.9% 1000 Ml Inj (Ns 1000 M (06/30/17 16:32) Labs Laboratory Tests Test 06/30/17 15:25 White Blood Count 10.7 TH/MM3 Red Blood Count 3.99 MIL/MM3 Hemoglobin 12.8 GM/DL Hematocrit 37.4 % Mean Corpuscular Volume 93.6 FL Mean Corpuscular Hemoglobin 32.2 PG Mean Corpuscular Hemoglobin Concent 34.4 % Red Cell Distribution Width 13.3 % Platelet Count 324 TH/MM3 Mean Platelet Volume 7.8 FL Neutrophils (%) (Auto) 69.4 % Lymphocytes (%) (Auto) 19.8 % Monocytes (%) (Auto) 10.1 % Eosinophils (%) (Auto) 0.2 % Basophils (%) (Auto) 0.5 % Neutrophils # (Auto) 7.4 TH/MM3 Lymphocytes # (Auto) 2.1 TH/MM3 Monocytes # (Auto) 1.1 TH/MM3 Eosinophils # (Auto) 0.0 TH/MM3 Basophils # (Auto) 0.1 TH/MM3 CBC Comment DIFF FINAL Differential Comment Prothrombin Time 10.4 SEC Prothromb Time International Ratio 0.9 RATIO Activated Partial Thromboplast Time 29.1 SEC Blood Urea Nitrogen 17 MG/DL Creatinine 1.20 MG/DL Random Glucose 117 MG/DL Total Protein 7.5 GM/DL Albumin 3.7 GM/DL Calcium Level 9.3 MG/DL Alkaline Phosphatase 93 U/L Aspartate Amino Transf (AST/SGOT) 24 U/L Alanine Aminotransferase (ALT/SGPT) 24 U/L Total Bilirubin 0.6 MG/DL Sodium Level 130 MEQ/L Potassium Level 4.5 MEQ/L Chloride Level 94 MEQ/L Carbon Dioxide Level 26.6 MEQ/L Anion Gap 9 MEQ/L Estimat Glomerular Filtration Rate 62 ML/MIN Total Creatine Kinase 130 U/L Lipase 91 U/L [facility] Medical Decision Making Medical Screen Exam Complete: Yes Emergency Medical Condition: Yes Medical Record Reviewed: Yes Differential Diagnosis BPPV, Mnire's, labyrinthitis, gastroenteritis, DKA, dehydration, electrolyte abnormality Narrative Course 56-year-old male who has been experiencing nausea and vomiting for the past 3 days as well as a intermittent vertigo sensation which is worse with movement. He had similar symptoms, as well as a headache, on June 13 and had a normal CT the brain. I discussed with his primary care physician Dr. Jade who sent the patient here. Plan is for basic lab work, EKG, ECG monitoring pulse oximetry. He'll be given IV Zofran, fluids as well as oral meclizine. Upon reexamination the patient feels significantly improved. His lab work reveals mild hyponatremia, hypochloremia, otherwise unremarkable. He was able to tolerate oral hydration as well as stand with minimal symptomology. He was given an additional liter of fluids. At this point in time the patient is stable for discharge with outpatient follow-up with his primary care physician. He will be given prescriptions for Zofran and meclizine. Discussed signs and symptoms noted warrant returning to the emergency room. He is stable for discharge. Diagnosis Primary Impression: Vertigo Additional Impressions: Nausea and vomiting Qualified Codes: R11.2 - Nausea with vomiting, unspecified Hyponatremia Dehydration Additional Instructions: Medication as prescribed. Stay well hydrated and well-nourished. Slowly advance diet as tolerated. Follow-up with primary care physician in the next few days and return for any acutely new or worsening symptoms. Med/Other Pt SpecificInfo: Prescription(s) given Scripts Meclizine (Meclizine) 12.5 Mg Tab 12.5 MG PO TID Y for VERTIGO for 5 Days, TAB 0 Refills Prov: Erick Clinton MD 06/30/17 Ondansetron Odt (Zofran Odt) 4 Mg Tab 4 MG SL Q6HR Y for Nausea/Vomiting, #30 TAB 0 Refills Prov: Erick Clinton MD 06/30/17 Disposition: 01 DISCHARGE HOME Condition: Stable Andrzej Sinha Jun 30, 2017 15:12
[2017-06-30] MEDS ORDERED: SODIUM CHLORIDE 0.9% FLUSH 10 ML FLUSH IV FLUSH PRN (15:15)
[2017-06-30] MEDS ORDERED: ONDANSETRON HCL 4 MG/2 ML VIAL IVP ONE (15:15)
[2017-06-30] MEDS ORDERED: MECLIZINE HCL 25 MG TAB PO ONE (15:15)
[2017-06-30 16:00] LABS: AUTOMATED NEUTROPHIL # 7.4 TH/MM3 (1.8-7.7); BASOPHIL # 0.1 TH/MM3 (0-0.2); BASOPHIL % 0.5 % (0.0-2.0); EOSINOPHIL % 0.2 % (0.0-4.0); HEMATOCRIT 37.4 % (39.0-51.0); HEMO FLAGS DIFF FINAL; LYMPH % 19.8 % (9.0-44.0); LYMPHOCYTE # 2.1 TH/MM3 (1.0-4.8); MEAN CELL VOLUME 93.6 FL (80.0-100.0); MEAN CORPUSCULAR HEMOGLOBIN 32.2 PG (27.0-34.0); MEAN CORPUSCULAR HGB CONC 34.4 % (32.0-36.0); MONO % 10.1 % (0.0-8.0); NEUT % 69.4 % (16.0-70.0); PLATELET COUNT 324 TH/MM3 (150-450); RED BLOOD COUNT 3.99 MIL/MM3 (4.50-5.90); RED CELL DISTRIBUTION WIDTH 13.3 % (11.6-17.2); WHITE BLOOD COUNT 10.7 TH/MM3 (4.0-11.0)
[2017-06-30 16:20] LABS: ANION GAP 9 MEQ/L (5-15); AST (GOT) 24 U/L (15-37); BICARBONATE 26.6 MEQ/L (21.0-32.0); BLOOD UREA NITROGEN 17 MG/DL (7-18); CHLORIDE 94 MEQ/L (98-107); GLOMERULAR FILTRATION RATE 62 ML/MIN (>89); POTASSIUM 4.5 MEQ/L (3.5-5.1); SODIUM (NA) 130 MEQ/L (136-145)
[2017-06-30 16:21] LABS: ALT (GPT) 24 U/L (12-78)
[2017-06-30 16:23] LABS: ALKALINE PHOSPHATASE 93 U/L (45-117); CREATINE KINASE 130 U/L (39-308); TOTAL BILIRUBIN ADULT 0.6 MG/DL (0.2-1.0)
[2017-06-30 16:25] LABS: APTT (PATIENT) 29.1 SEC (24.3-30.1); INTERNATIONAL NORMALIZED RATIO 0.9 RATIO; PROTHROMBIN TIME - PATIENT 10.4 SEC (9.8-11.6)
[2017-06-30] MEDS ORDERED: ZOFR4TAB3 SL (16:59)
[2017-06-30] MEDS ORDERED: MECL12.574 PO (16:59)
[2017-06-30 18:04] VITALS: BP 132/76
--- NOTE | 2017-07-01 14:40 | EKG ---
Date Performed: 06/30/2017 Time Performed: 15:19:40 PTAGE: 56 years EKG: SINUS TACHYCARDIA ABNORMAL RHYTHM ECG Compared to prior tracing no significant change PREVIOUS TRACING : 05/26/2017 18.29 DOCTOR: Richardson Esquivel Interpretating Date/Time 07/01/2017 14:35:07
[2017-07-20] MEDS ORDERED: LOVA40TA PO (07:56)
[2017-07-21] MEDS ORDERED: LOVA40TA PO (06:45)
[2017-07-22] MEDS ORDERED: AMLO5TAB2 PO (18:08)
== END 2017-06-30 18:03 | disposition home or self-care (01) ==
LOC: NEPD 14:31
DX: R42 Dizziness and giddiness (principal); R11.2 Nausea with vomiting, unspecified; E87.1 Hypo-osmolality and hyponatremia; E86.0 Dehydration; E10.9 Type 1 diabetes mellitus without complications; M13.80 Other specified arthritis, unspecified site; I10 Essential (primary) hypertension; E78.00 Pure hypercholesterolemia, unspecified; M10.9 Gout, unspecified
CPT/HCPCS: 80053; 82550; 83690; 85025; 85610; 85730; 93005; 96360; 96361; 99284; J2405; J7030

== ENCOUNTER → 2017-11-26 | Outpatient (CLI) | payer OTHER ==
[~2017-11-26] MED LIST changes: +CARB6.5S5 EACH EAR; +CYCL10TA PO; -CYCL1TAB29 PO; +DIABETIC PILL; +DOXY100C PO; +GLUC1TES EXTERNAL; -GLUC1TES XX; +LANC1MIS; +LANCMIS; +MECL12.574 PO; -MELO-1 PO; +METF1000 PO; +RANI150T PO
--- NOTE | 2017-11-26 15:40 | RADRPT ---
EXAM DATE/TIME: 11/26/2017 12:51 [facility] COMPARISON: No previous studies available for comparison. INDICATIONS : Fell out of wheelchair yesterday, pain right thumb MEDICAL HISTORY : None. SURGICAL HISTORY : None. ENCOUNTER: Initial ACUITY: 1 day PAIN SCORE: 3/10 LOCATION: Right thumb FINDINGS: Three view examination of the right hand demonstrates no soft tissue swelling, dislocation, or fractu re. The carpal bones appear intact. The interphalangeal and metacarpophalangeal joints are intact. Bony mineralization is normal. CONCLUSION: 1. No acute fracture or dislocation. Randal Patterson MD on November 26, 2017 at 15:37 Board Certified Radiologist. This report was verified electronically.
== END ==
LOC: HRAD 12:37
PROVIDERS: ATTEND Family Medicine
DX: M79.641 Pain in right hand (principal)
CPT/HCPCS: 73130

== ENCOUNTER → 2017-11-30 | Outpatient (CLI) | payer OTHER ==
--- NOTE | 2017-11-30 12:37 | RADRPT ---
EXAM DATE/TIME: 11/30/2017 11:41 [facility] COMPARISON: No previous studies available for comparison. INDICATIONS : Nose pain. Fell out of wheelchair. Face hit concrete. MEDICAL HISTORY : Hypertension. Diabetes mellitus type 2. SURGICAL HISTORY : None. ENCOUNTER: Initial ACUITY: 4 - 6 days PAIN SCORE: 10/10 LOCATION: Nose. FINDINGS: Lateral and Car views of the nasal bones demonstrate no evidence of fracture. There is no signifi cant soft tissue swelling. The infraorbital rims are intact. CONCLUSION: Negative for fracture Oscar Millard MD FACR on November 30, 2017 at 12:34 Board Certified Radiologist. This report was verified electronically.
== END ==
LOC: HRAD 11:12
PROVIDERS: ATTEND Family Medicine
DX: S09.92XA Unspecified injury of nose, initial encounter (principal)
CPT/HCPCS: 70160

== ENCOUNTER 2018-02-25 08:31 | Emergency (ER) | payer OTHER ==
[~2018-02-25] VITALS: Ht 162.6 cm; Wt 63.0 kg
[2018-02-25 08:37] VITALS: BP 132/69; PULSE 74; RESP 16; TEMP 98.9; O2SAT 97
[2018-02-25] MEDS ORDERED: CLINDAMYCIN INJ 600 MG in SODIUM CHLORIDE 0.9% INJ 100 ML IV ONE (09:15)
[2018-02-25] MEDS ORDERED: KETOROLAC TROMETHAMINE 30 MG/ML (IVP) VIAL IVP ONE (09:15)
--- NOTE | 2018-02-25 09:15 | PD ---
HPI Chief Complaint: Skin Problem Time Seen by Provider: 09:02 Travel History International Travel<30 days: No Contact w/Intl Traveler<30days: No Traveled to known affect area: No History of Present Illness HPI 57yo M with PMH of HTN and DM presents to the ED with c/o pain in right wrist for 2 days. Pt states he bang his hand on the door 2 days ago and had skin tear but didnt think much of it. Started becoming red and swollen yesterday and has some oozing today. There is pain with movement of right wrist. Denies any fever, chest pain, sob, n/v, abdominal pain, focal weakness or numbness. Tetanus up to date. PFSH Past Medical History Arthritis: Yes Cancer: No Cardiovascular Problems: Yes (htn on meds) High Cholesterol: Yes Diabetes: Yes (type 1) Patient Takes Glucophage: No Diminished Hearing: No Gastrointestinal Disorders: No Gout: Yes Genitourinary: No Hypertension: Yes Immune Disorder: No Implanted Vascular Access Dvce: No Neurologic: Yes (neuropathy, syncope) Psychiatric: No Reproductive: No Influenza Vaccination: No Past Surgical History Cardiac Surgery: Yes (loop recorder) Other Surgery: No Social History Alcohol Use: Yes (sometimes) Tobacco Use: No Substance Use: No Allergies-Medications (Allergen,Severity, Reaction): Coded Allergies: sodium hypochlorite solution (Unverified Allergy, Severe, 02/25/18) opium (anthroposophic) (Unverified Allergy, Intermediate, Anaphylaxis, 02/25) states he gets agitation and hyperventilates Opioids - Morphine Analogues (Unverified Allergy, Unknown, 02/25/18) Opioids-Meperidine and Related (Unverified Allergy, Unknown, 02/25/18) Opioids-Methadone and Related (Unverified Allergy, Unknown, 02/25/18) shellfish derived (Unverified Allergy, Unknown, 02/25/18) Uncoded Allergies: opiates (Adverse Reaction, Unknown, 09/07/17) . Reported Meds & Prescriptions Reported Meds & Active Scripts Active Clindamycin (Clindamycin HCl) 150 Mg Cap 300 Mg PO Q6H 10 Days Tylenol (Acetaminophen) 325 Mg Tab 650 Mg PO Q6H PRN Amlodipine (Amlodipine Besylate) 5 Mg Tab 5 Mg PO DAILY Buspirone (Buspirone HCl) 10 Mg Tab 10 Mg PO TID Gabapentin 300 Mg Cap 300 Mg PO TID [facility]vs Lancets Ultra Thin 30 (Lancets) 30 Gauge Mis Units .XX TID Ranitidine (Ranitidine HCl) 150 Mg Tab 150 Mg PO DAILY Easy Touch Lancets 26G 26 Gauge Mis Ea .ROUTE DIRECTED True Metrix Self Monitori (Glucose Blood) 1 Emily Emily 1 Strip EXTERNAL 5 TIMES A DAY Metformin (Metformin HCl) 1,000 Mg Tab 1,000 Mg PO BIDPC Temazepam 30 Mg Cap 30 Mg PO HS PRN Sumatriptan (Sumatriptan Succinate) 50 Mg Tab 50 Mg PO ONCE PRN If a satisfactory response has not been obtained at 2 hours, a second dose may be administered Meclizine (Meclizine HCl) 12.5 Mg Tab 12.5 Mg PO TID PRN 30 Days Fluticasone Nasal [place] 50 Mcg/Act Naspr 1-2 [place] EACH NARE BID 50 mcg/spray Metoprolol Tartrate 25 Mg Tab 25 Mg PO BID Lovastatin 40 Mg Tab 40 Mg PO HS Zofran Odt (Ondansetron Odt) 4 Mg Tab 4 Mg SL Q6HR PRN Epipen 2-Eliseo Inj (Epinephrine) 0.3 Mg/0.3 Ml Pfpen 0.3 Mg IM ONCE PRN Flexeril (Cyclobenzaprine HCl) 10 Mg Tab 10 Mg PO TID PRN 10 Days Lotensin (Benazepril HCl) 20 Mg Tab 20 Mg PO DAILY Zyloprim (Allopurinol) 300 Mg Tab 300 Mg PO DAILY Reported Tramadol (Tramadol HCl) 50 Mg Tab 50 Mg PO TID PRN Walker Rolling/GetGo (Device) 1 Mis Mis 1 Ea .ROUTE DIRECTED Review of Systems Except as stated in HPI: all other systems reviewed are Neg Physical Exam Narrative GENERAL: 57yo M in mild distress. SKIN: Focused skin assessment warm/dry. HEAD: Atraumatic. Normocephalic. CARDIOVASCULAR: Regular rate and rhythm. No murmur appreciated. RESPIRATORY: No accessory muscle use. Clear to auscultation. Breath sounds equal bilaterally. GASTROINTESTINAL: Abdomen soft, non-tender, nondistended. MUSCULOSKELETAL: RUE: +Erythema on dorsum of wrist wrist 7cm by 7cm. Erythema is not circumferential. +Purulent discharge from skin tear on distal radius. No fluctuance. Radial pulse 2+. Sensation intact. Soft forearm compartment. NEUROLOGICAL: Awake and alert. No obvious cranial nerve deficits. Motor grossly within normal limits. Normal speech. PSYCHIATRIC: Appropriate mood and affect; insight and judgment normal. Data Data Last Documented VS Vital Signs Date Time Temp Pulse Resp B/P (MAP) Pulse Ox O2 Delivery O2 Flow Rate FiO2 02/25/18 08:37 98.9 74 16 132/69 (90) 97 Orders Orders Basic Metabolic Panel (Bmp) (02/25/18 09:07) Complete Blood Count With Diff (02/25/18 09:07) Wound Culture And Gram Stain (02/25/18 09:07) Ketorolac Inj (Toradol Inj) (02/25/18 09:15) Clindamycin Inj (Cleocin Inj) (02/25/18 09:15) Wrist, Limited (Ap&Lat) (02/25/18 ) Ed Discharge Order (02/25/18 11:39) Labs Laboratory Tests Test 02/25/18 09:29 White Blood Count 11.6 TH/MM3 Red Blood Count 4.37 MIL/MM3 Hemoglobin 13.7 GM/DL Hematocrit 39.9 % Mean Corpuscular Volume 91.2 FL Mean Corpuscular Hemoglobin 31.4 PG Mean Corpuscular Hemoglobin Concent 34.4 % Red Cell Distribution Width 13.3 % Platelet Count 161 TH/MM3 Mean Platelet Volume 9.0 FL Neutrophils (%) (Auto) 81.7 % Lymphocytes (%) (Auto) 9.3 % Monocytes (%) (Auto) 8.2 % Eosinophils (%) (Auto) 0.3 % Basophils (%) (Auto) 0.5 % Neutrophils # (Auto) 9.5 TH/MM3 Lymphocytes # (Auto) 1.1 TH/MM3 Monocytes # (Auto) 0.9 TH/MM3 Eosinophils # (Auto) 0.0 TH/MM3 Basophils # (Auto) 0.1 TH/MM3 CBC Comment AUTO DIFF Differential Comment AUTO DIFF CONFIRMED Platelet Estimate NORMAL Platelet Morphology Comment ENLARGED Blood Urea Nitrogen 11 MG/DL Creatinine 0.93 MG/DL Random Glucose 147 MG/DL Calcium Level 9.3 MG/DL Sodium Level 136 MEQ/L Potassium Level 4.7 MEQ/L Chloride Level 101 MEQ/L Carbon Dioxide Level 24.2 MEQ/L Anion Gap 11 MEQ/L Estimat Glomerular Filtration Rate 83 ML/MIN MDM Medical Decision Making Medical Screen Exam Complete: Yes Emergency Medical Condition: Yes Differential Diagnosis Cellulitis vs. small abscess vs. uncontrolled DM Narrative Course 57yo M with right wrist pain and redness after hitting it on a door 2 days ago. There is a small amount of purulent discharge from the skin tear. No fluctuance. Right wrist is tender to palpation. Pt is nontoxic appearing but is a diabetic so will obtain labs, give clindamycin and obtain xray of right wrist. Labs reviewed, WBC 11.6. Glucose 147. Vital signs normal. No fever or tachycardia. Pt given toradol and clindamycin. Xray right wrist showed no evidence of recent bony injury. Pt reevaluated at bedside and pain has improved. Skin tear is no longer draining and there is no fluctuance so will try outpatient therapy with oral antibiotics first. Pt tolerating PO. Return precautions given. Diagnosis Primary Impression: Cellulitis Qualified Codes: L03.113 - Cellulitis of right upper limb Patient Instructions: General Instructions Departure Forms: Tests/Procedures Additional Instructions: Please follow up with your primary care physician in 2 days. Return to the ED if redness, pain worsens or if you have fever, vomiting and cannot take medications. Med/Other Pt SpecificInfo: Prescription(s) given Scripts Clindamycin (Clindamycin) 150 Mg Cap 300 MG PO Q6H for Infection for 10 Days, #80 CAP 0 Refills Prov: Radha Mejia DO 02/25/18 Acetaminophen (Tylenol) 325 Mg Tab 650 MG PO Q6H Y for PAIN SCALE 1 TO 4, #20 TAB 0 Refills Prov: Radha Mejai DO 02/25/18 Disposition: 01 DISCHARGE HOME Condition: Stable Radha Mejia DO February 25, 2018 09:15
--- NOTE | 2018-02-25 09:37 | RADRPT ---
EXAM DATE/TIME: 02/25/2018 09:22 [facility] COMPARISON: No previous studies available for comparison. INDICATIONS : Right wrist pain and abrasion. Patient hit his right wrist on a door 2 days ago. MEDICAL HISTORY : None. SURGICAL HISTORY : None. ENCOUNTER: Initial ACUITY: 2 days PAIN SCORE: 8/10 LOCATION: Right lateral wrist. FINDINGS: Two view examination of the right wrist demonstrates no soft tissue swelling, dislocation, or fractur e. The joint spaces are maintained. Bony mineralization is normal. Vascular calcification of the dorsal wrist. CONCLUSION: No evidence of recent bony injury. Luis Cheema MD on February 25, 2018 at 9:35 Board Certified Radiologist. This report was verified electronically.
[2018-02-25 09:41] LABS: AUTOMATED NEUTROPHIL # 9.5 TH/MM3 (1.8-7.7); BASOPHIL # 0.1 TH/MM3 (0-0.2); BASOPHIL % 0.5 % (0.0-2.0); EOSINOPHIL % 0.3 % (0.0-4.0); HEMATOCRIT 39.9 % (39.0-51.0); HEMOGLOBIN 13.7 GM/DL (13.0-17.0); LYMPH % 9.3 % (9.0-44.0); LYMPHOCYTE # 1.1 TH/MM3 (1.0-4.8); MEAN CELL VOLUME 91.2 FL (80.0-100.0); MEAN CORPUSCULAR HEMOGLOBIN 31.4 PG (27.0-34.0); MEAN CORPUSCULAR HGB CONC 34.4 % (32.0-36.0); MONO % 8.2 % (0.0-8.0); MONOCYTE # 0.9 TH/MM3 (0-0.9); NEUT % 81.7 % (16.0-70.0); PLATELET COUNT 161 TH/MM3 (150-450); RED BLOOD COUNT 4.37 MIL/MM3 (4.50-5.90); RED CELL DISTRIBUTION WIDTH 13.3 % (11.6-17.2); WHITE BLOOD COUNT 11.6 TH/MM3 (4.0-11.0)
[2018-02-25 09:59] LABS: BICARBONATE 24.2 MEQ/L (21.0-32.0); CALCIUM 9.3 MG/DL (8.5-10.1); CREATININE 0.93 MG/DL (0.60-1.30)
[2018-02-25] MEDS ORDERED: TYLE325T PO (11:38)
[2018-02-25] MEDS ORDERED: CLIN150C14 PO (11:38)
== END 2018-02-25 12:09 | disposition home or self-care (01) ==
LOC: NEPD 08:31
DX: L03.113 Cellulitis of right upper limb (principal); I10 Essential (primary) hypertension; E10.9 Type 1 diabetes mellitus without complications; Z79.84 Long term (current) use of oral hypoglycemic drugs
CPT/HCPCS: 73100; 80048; 85025; 86403; 87070; 87186; 96374; 96375; 99284; J1885